=== PATIENT | female | born 1960 | race Asian ===

== ENCOUNTER → 2018-12-30 07:34 | Outpatient (CLI) | payer OTHER, SELFPAY ==
[2018-12-30 08:41] LABS: Add Manual Diff / Slide Review NO; Basophils Absolute Auto 100 /uL (0-100); Basophils Percent Auto 1.1 % (0-2); Eosinophils Absolute Auto 200 /uL (0-450); Eosinophils Percent Auto 3.9 % (2-4); Hematocrit 40.7 % (36-46); Hemoglobin 13.7 g/dL (12.0-16.0); Lymphocytes Absolute Auto 2300 /uL (1100-4500); Lymphocytes Percent Auto 37.7 % (25-40); Mean Corpuscular HGB Conc 33.7 % (30-36); Mean Corpuscular Hemoglobin 28.7 PG (26-34); Mean Corpuscular Volume 85.2 fL (80-100); Monocytes Absolute Auto 600 /uL (0-900); Monocytes Percent Auto 9.8 % (3-14); Neutrophils Absolute Auto 2900 /uL (1500-7000); Neutrophils Percent Auto 47.5 % (50-75); Platelet Count 331 X10^3/uL (150-400); Red Blood Cell Count 4.77 X10^6/uL (4.0-5.2); Red Cell Distribution Width 12.4 % (11.6-14.8); White Blood Cell Count 6.1 X10^3/uL (4.5-11.0)
[2018-12-30 09:20] LABS: Alanine Aminotransferase 42 IU/L (9-52); Albumin 4.7 g/dL (3.5-5.0); Albumin Globulin Ratio 1.4 (1.0-2.8); Alkaline Phosphatase 79 U/L (38-126); Aspartate Aminotransferase 34 IU/L (14-36); BUN Creatinine Ratio 28.3 (6-22); Bilirubin Total 0.7 mg/dL (0.2-1.3); Blood Urea Nitrogen 17 mg/dL (7-17); Calcium 9.7 mg/dL (8.4-10.2); Carbon Dioxide 26 mmol/L (22-32); Chloride 104 mmol/L (98-107); Cholesterol 181 mg/dL (140-199); Estimated Glomerular Filt Rate > 60.0 mL/min (>60); Globulin 3.4 g/dL (1.7-4.1); Glucose 105 mg/dL (70-100); HDL Cholesterol 49 mg/dL (40-60); HEMOLYSIS < 15 (0-50); LDL Cholesterol Calculated 102 mg/dL (<100); Sodium 141 mmol/L (137-145); Total Protein 8.1 g/dL (6.3-8.2); Triglycerides 149 mg/dL (35-150)
== END ==
PROVIDERS: Family Provider Physician Assistant; PCP Physician Assistant; Visit Provider Physician Assistant
DX: Z00.00 Encounter for general adult medical examination without abnormal findings (principal); Z13.1 Encounter for screening for diabetes mellitus; Z13.220 Encounter for screening for lipoid disorders; Z13.29 Encounter for screening for other suspected endocrine disorder; Z13.6 Encounter for screening for cardiovascular disorders
CPT/HCPCS: 36415; 80053; 80061; 84443; 85025

== ENCOUNTER 2019-02-27 01:11 | Emergency (ER) | payer OTHER, SELFPAY ==
[2019-02-27] VITALS (10 sets, daily range): BP systolic 116–193; BP diastolic 67–90; PULSE 71–108; RESP 12–14; TEMP 36.6; O2SAT 98–100; BMI 27.0
--- NOTE | 2019-02-27 01:18 | DI.RAD.S_ITS ---
PROCEDURE: XR CHEST 1V INDICATIONS: chest pain TECHNIQUE: One view of the chest was acquired. COMPARISON: None. FINDINGS: Surgical changes and devices: None. Lungs and pleura: Lungs are clear. No pleural effusions or pneumothorax. Mediastinum: Mediastinal contours appear normal. Heart size is normal. Bones and chest wall: No suspicious bony lesions. Overlying soft tissues appear unremarkable. IMPRESSION: Stable chest. No acute cardiopulmonary process is suspected. Note: The preliminary ED findings and the final radiology report are concordant. Dictated by: Johnny Segovia M.D. on 02/27/2019 at 7:05 Approved by: Johnny Segovia M.D. on 02/27/2019 at 7:05
--- NOTE | 2019-02-27 01:19 | ED_ITS ---
HPI - Chest Pain General Chief Complaint: Chest Pain Stated Complaint: chest pain on/off since yesterday Time Seen by Provider: 02/27/19 01:16 Source: patient Mode of arrival: ambulatory Limitations: no limitations History of Present Illness HPI narrative: 58-year-old female here for evaluation of occasional retrosternal and left-sided chest pain over the past several weeks. She does not associate it with any particular activity. States it does not get worse with movement or palpation of breathing. She states that for the past 24-36 hours the symptoms have become more intense. She took some antacids because she thought it was heartburn which did not seem to improve any of her symptoms. She came in this evening because she felt like the symptoms for worsening. Related Data Home Medications Medication Instructions Recorded Confirmed [[facility] ] #0 01/24/17 11/23/18 calcium carbonate 500 mg calcium See Rx Instructions PO .COMPLEX 11/23/18 11/23/18 (1,250 mg) tablet tab tvvmiiwybcwi-bksxkyfl-kvnxosh-folic tab PO tab 11/23/18 11/23/18 acid 400 mcg-vit K1 20 mcg tablet Allergies Allergy/AdvReac Type Severity Reaction Status Date / Time No Known Drug Allergies Allergy Verified 02/27/19 01:21 Review of Systems Constitutional Denies fever(s) and Denies headache(s) ENT Ears, Nose, Mouth, and Throat: Denies headache(s) Cardiovascular Reports chest pain, Denies edema, Denies palpitations and Denies dyspnea Respiratory Denies dyspnea Gastrointestinal Gastrointestinal: Denies abdominal pain, Denies nausea and Denies vomiting Genitourinary Denies dysuria Musculoskeletal Denies myalgias and Denies arthralgias Integumentary/Breasts Denies rash Neurologic Denies behavioral changes and Denies headache(s) Psychiatric Denies behavioral changes Endocrine Denies palpitations Hematologic/Lymphatic Denies easy bleeding and Denies easy bruising [facility] History Status post delivery Family History (Updated 12/25/15 @ 00:00 by Jina Mcintyre PA-C) Brother DM w/o complication type II Brother Other and unspecified hyperlipidemia Alcohol abuse Brother Alcoholism /alcohol abuse Smoker Mother Essential hypertension Heart disease Sister Cervical cancer Sister History of breast cancer Social History Smoking Status: Never smoker second hand exposure: No alcohol intake: current (wine, once a year.) substance use type: does not use Family History Brother DM w/o complication type II Brother Other and unspecified hyperlipidemia Alcohol abuse Brother Alcoholism /alcohol abuse Smoker Mother Essential hypertension Heart disease Sister Cervical cancer Sister History of breast cancer Social History Smoking Status: Never smoker second hand exposure: No alcohol intake: current (wine, once a year.) substance use type: does not use Exam Initial Vital Signs Initial Vital Signs: Vital Signs Temperature 97.9 F 02/27/19 01:22 Pulse Rate 105 H 02/27/19 01:22 Respiratory Rate 12 02/27/19 01:22 Blood Pressure 193/79 H 02/27/19 01:22 Pulse Oximetry 100 02/27/19 01:22 Const General: cooperative, comfortable, well developed, well groomed and No acute distress Orientation: alert, awake and oriented x3 HENMT Head: normal to inspection and normocephalic Chest Chest: normal inspection of the chest, No crepitus and No tenderness Resp Effort & Inspection: normal respiratory effort Auscultation: clear to auscultation bilaterally Cardio Rate: regular rate Rhythm: regular rhythm Pulses: radial pulses present GI Inspection: non-distended Palpation: soft, No firm and No tender Skin Lesions: no lesions Rashes: no rashes Neuro General: alert, awake and oriented x3 Cognition: normal cognition Speech: speech normal Extrem General: normal to inspection and capillary refill normal Psych Appearance: grossly normal and well kempt Scores GCS [place] coma scale eye opening: Spontaneous [place] coma scale verbal response: Orientated [place] coma scale motor response: Obey commands [place] coma scale total score: 15 HEART Score Heart Score history: Slightly Suspicious Heart Score EKG: Normal Heart Score Age: 45-64 years old Heart Score risk factors: No known risk factors Heart Score troponin: < or = to normal limit Heart Score Total: 1 PERC Score Age greater than or equal to 50 years: Yes Heart rate greater than or equal to 100 bpm: Yes Room Air O2 Sat less than 95%: No Unilateral leg swelling: No Recent trauma or surgery: No Hemoptysis: No Prior PE or DVT: No Hormone Use: No Total PERC Score: 2 Course Orders Ordered: ED Orders 02/27/19 01:18 XR chest 1V Stat EKG-12 Lead Stat 02/27/19 01:20 Complete Blood Count AUTO DIFF Stat Comprehensive Metabolic Panel Stat D Dimer Stat Lipase Stat Partial Thromboplastin Time Stat Prothrombin Time INR Stat Troponin I Stat 02/27/19 03:25 Troponin I Stat Discontinued Medications Acetaminophen (Tylenol) 650 mg PO NOW ONE Stop: 02/27/19 02:02 Last Admin: 02/27/19 02:03 Dose: 650 mg Aspirin (Aspirin Chew) 162 mg PO NOW ONE Stop: 02/27/19 01:22 Last Admin: 02/27/19 01:46 Dose: 162 mg Nitroglycerin (Nitrostat) 0.4 mg SL [id number] PRN PRN Reason: Chest Pain Last Admin: 02/27/19 01:59 Dose: 0.4 mg Admin: 02/27/19 01:53 Dose: 0.4 mg Admin: 02/27/19 01:46 Dose: 0.4 mg Vital Signs - 8 hr 02/27/19 01:22 02/27/19 01:46 02/27/19 01:52 Temperature 97.9 F Pulse Rate 105 H 80 107 H Respiratory Rate 12 Blood Pressure 193/79 H 177/81 H 151/81 H Blood Pressure [Left Arm] Pulse Oximetry 100 02/27/19 01:53 02/27/19 01:57 02/27/19 01:59 Temperature Pulse Rate 108 H 99 H 94 H Respiratory Rate Blood Pressure 151/81 H 174/90 H 174/90 H Blood Pressure [Left Arm] Pulse Oximetry 02/27/19 02:04 02/27/19 02:13 02/27/19 03:14 Temperature Pulse Rate 88 80 71 Respiratory Rate 14 14 Blood Pressure 132/71 Blood Pressure [Left Arm] 130/69 116/72 Pulse Oximetry 99 98 MDM - Chest Pain Lab Data Attestation: I reviewed the patient's lab results. Result diagrams: 02/27/19 01:20 02/27/19 01:20 Lab Results 02/27/19 02/27/19 02/27/19 Range/Units 01:20 01:20 01:20 WBC 8.5 (4.5-11.0) X10^3/uL RBC 4.83 (4.0-5.2) X10^6/uL Hgb 14.0 (12.0-16.0) g/dL Hct 41.3 (36-46) % MCV 85.4 (80-100) fL MCH 28.9 (26-34) PG MCHC 33.8 (30-36) % RDW 13.0 (11.6-14.8) % Plt Count 327 (150-400) X10^3/uL Neut % (Auto) 38.7 L (50-75) % Lymph % (Auto) 45.4 H (25-40) % Haines % (Auto) 11.0 (3-14) % Eos % (Auto) 3.9 (2-4) % Baso % (Auto) 1.0 (0-2) % Neut # (Auto) 3300 (6852-2668) /uL Lymph # (Auto) 3900 (5618-3623) /uL [place] # (Auto) 900 (0-900) /uL Eos # (Auto) 300 (0-450) /uL Baso # (Auto) 100 (0-100) /uL PT 10.4 (10.1-12.7) SECONDS INR 0.9 (0.9-1.3) APTT 40 H (26.4-36.2) SECONDS D-Dimer (<230) ng/mL Sodium 141 (137-145) mmol/L Potassium 3.7 (3.4-5.1) mmol/L Chloride 104 (98-107) mmol/L Carbon Dioxide 27 (22-32) mmol/L BUN 23 H (7-17) mg/dL Creatinine 0.60 (0.52-1.04) mg/dL Estimated GFR > 60.0 (>60) mL/min BUN/Creatinine Ratio 38.3 H (6-22) Glucose 102 H (70-100) mg/dL Calcium 9.4 (8.4-10.2) mg/dL Total Bilirubin 0.5 (0.2-1.3) mg/dL AST 58 H (14-36) IU/L ALT 58 H (9-52) IU/L Alkaline Phosphatase 93 (38-126) U/L Troponin I < 0.012 (0.01-0.034) ng/mL Total Protein 8.2 (6.3-8.2) g/dL Albumin 4.7 (3.5-5.0) g/dL Globulin 3.5 (1.7-4.1) g/dL Albumin/Globulin Ratio 1.3 (1.0-2.8) Lipase 159 (23-300) U/L 02/27/19 02/27/19 Range/Units 01:20 03:25 WBC (4.5-11.0) X10^3/uL RBC (4.0-5.2) X10^6/uL Hgb (12.0-16.0) g/dL Hct (36-46) % MCV (80-100) fL MCH (26-34) PG MCHC (30-36) % RDW (11.6-14.8) % Plt Count (150-400) X10^3/uL Neut % (Auto) (50-75) % Lymph % (Auto) (25-40) % Haines % (Auto) (3-14) % Eos % (Auto) (2-4) % Baso % (Auto) (0-2) % Neut # (Auto) (5094-7378) /uL Lymph # (Auto) (6325-3410) /uL Haines # (Auto) (0-900) /uL Eos # (Auto) (0-450) /uL Baso # (Auto) (0-100) /uL PT (10.1-12.7) SECONDS INR (0.9-1.3) APTT (26.4-36.2) SECONDS D-Dimer 206 (<230) ng/mL Sodium (137-145) mmol/L Potassium (3.4-5.1) mmol/L Chloride (98-107) mmol/L Carbon Dioxide (22-32) mmol/L BUN (7-17) mg/dL Creatinine (0.52-1.04) mg/dL Estimated GFR (>60) mL/min BUN/Creatinine Ratio (6-22) Glucose (70-100) mg/dL Calcium (8.4-10.2) mg/dL Total Bilirubin (0.2-1.3) mg/dL AST (14-36) IU/L ALT (9-52) IU/L Alkaline Phosphatase (38-126) U/L Troponin I < 0.012 (0.01-0.034) ng/mL Total Protein (6.3-8.2) g/dL Albumin (3.5-5.0) g/dL Globulin (1.7-4.1) g/dL Albumin/Globulin Ratio (1.0-2.8) Lipase (23-300) U/L Imaging Data Chest x-ray: Attestation: I personally reviewed and interpreted this imaging study as follows: My impression: No acute pathology, normal size heart ECG Data Attestation: I personally reviewed and interpreted this ECG as follows: Prior ECG tracings: not available for review Interpretation: Sinus rhythm Ventricular rate 89 Normal axis Normal QRS Normal QTC No ST T wave changes MDM Narrative Medical decision making narrative: Patient without any resolution of symptoms with the nitro here in the ER. EKG is unremarkable. Troponins negative x2. D- dimer was negative. Chest x-ray is unremarkable. Patient is low risk according to heart score. For the patient that she needed to contact her primary doctor discuss indications for stress testing. Patient expressed understanding and agreement with plan. Discharge Plan Departure Patient Disposition: Home Clinical Impression: Atypical chest pain Instructions: DI for Atypical Chest Pain Activity Restrictions/Additional Instructions: On Friday you need to contact your primary care doctor to discuss the indications for stress test. Return to the emergency department for any new or worsening symptoms. Continue all other medications as directed Prescriptions: No Action One-A-Day Women's 50 Plus 400-20 mcg tablet PO RF: 0 calcium carbonate [Calcium 500] 500 mg calcium (1,250 mg) tablet See Patient Comments PO .COMPLEX RF: 0 [allertec ] Qty: 0 RF: 0 Referrals: Jina Mcintyre PA-C [Primary Care Provider] -
[2019-02-27 01:29] LABS: Add Manual Diff / Slide Review NO; Basophils Absolute Auto 100 /uL (0-100); Eosinophils Absolute Auto 300 /uL (0-450); Eosinophils Percent Auto 3.9 % (2-4); Hematocrit 41.3 % (36-46); Lymphocytes Absolute Auto 3900 /uL (1100-4500); Lymphocytes Percent Auto 45.4 % (25-40); Mean Corpuscular HGB Conc 33.8 % (30-36); Mean Corpuscular Hemoglobin 28.9 PG (26-34); Mean Corpuscular Volume 85.4 fL (80-100); Monocytes Absolute Auto 900 /uL (0-900); Neutrophils Absolute Auto 3300 /uL (1500-7000); Neutrophils Percent Auto 38.7 % (50-75); Platelet Count 327 X10^3/uL (150-400); Red Blood Cell Count 4.83 X10^6/uL (4.0-5.2); White Blood Cell Count 8.5 X10^3/uL (4.5-11.0)
[2019-02-27 01:34] LABS: INR 0.9 (0.9-1.3); Prothrombin Time 10.4 SECONDS (10.1-12.7)
[2019-02-27 01:36] LABS: PTT Partial Thromboplastin Tim 40 SECONDS (26.4-36.2)
[2019-02-27 01:38] LABS: Alanine Aminotransferase 58 IU/L (9-52); Albumin 4.7 g/dL (3.5-5.0); Albumin Globulin Ratio 1.3 (1.0-2.8); Alkaline Phosphatase 93 U/L (38-126); Aspartate Aminotransferase 58 IU/L (14-36); BUN Creatinine Ratio 38.3 (6-22); Bilirubin Total 0.5 mg/dL (0.2-1.3); Blood Urea Nitrogen 23 mg/dL (7-17); Calcium 9.4 mg/dL (8.4-10.2); Carbon Dioxide 27 mmol/L (22-32); Chloride 104 mmol/L (98-107); Estimated Glomerular Filt Rate > 60.0 mL/min (>60); Globulin 3.5 g/dL (1.7-4.1); Glucose 102 mg/dL (70-100); HEMOLYSIS < 15 (0-50); Lipase 159 U/L (23-300); Potassium 3.7 mmol/L (3.4-5.1); Sodium 141 mmol/L (137-145); Total Protein 8.2 g/dL (6.3-8.2)
[2019-02-27] MEDS: NITROGLYCERIN 0.4 MG SL TAB SL ×3 (01:46→01:59)
[2019-02-27] MEDS: ASPIRIN 81 MG TAB 162 MG PO (01:46)
[2019-02-27 01:49] LABS: Troponin I < 0.012 ng/mL (0.01-0.034)
[2019-02-27] MEDS: ACETAMINOPHEN 325 MG TABLET 650 MG PO (02:03)
[2019-02-27 02:10] LABS: D Dimer 206 ng/mL (<230)
--- NOTE | 2019-02-27 03:28 | PC.NURSE ---
drawn by lab
[2019-02-27 03:55] LABS: Troponin I < 0.012 ng/mL (0.01-0.034)
== END 2019-02-27 04:56 | disposition home or self-care (01) ==
PROVIDERS: Emergency Provider Emergency Medicine; PCP Physician Assistant
DX: R07.89 Other chest pain (principal)
CPT/HCPCS: 36415; 36591; 71045; 80053; 83690; 84484; 85025; 85379; 85610; 85730; 93005; 99282; 99285

== ENCOUNTER → 2019-11-06 09:52 | Outpatient (CLI) | payer OTHER, SELFPAY ==
--- NOTE | 2019-11-06 | DI.MG.S_ITS ---
BILATERAL DIGITAL SCREENING MAMMOGRAM 3D/2D WITH CAD: 11/06/2019 CLINICAL: Routine screening. Family history of breast cancer. Comparison is made to exams dated: 08/13/2017 mammogram, 01/03/2016 mammogram, and 12/15/2014 mammogram - [facility]. The tissue of both breasts is heterogeneously dense. This may lower the sensitivity of mammography. Current study was also evaluated with a Computer Aided Detection (CAD) system. No significant masses, calcifications, or other findings are seen in either breast. There has been no significant interval change. IMPRESSION: NEGATIVE There is no mammographic evidence of malignancy. A 1 year screening mammogram is recommended. This exam was interpreted at Station ID: [id number]. NOTE: For mammograms, a report in lay terms will be sent to the patient. Approximately 15% of breast malignancies will not be visualized mammographically. In the management of a palpable breast mass, a negative mammogram must not discourage biopsy of a clinically suspicious lesion. Electronically Signed By: Cy fuentes/bridgette:11/08/2019 08:47:06 letter sent: Normal Exam ACR BI-RADS Category 1: Negative [id number]
== END ==
PROVIDERS: PCP Physician Assistant; Referring Provider Physician Assistant; Visit Provider Physician Assistant
DX: Z12.31 Encounter for screening mammogram for malignant neoplasm of breast (principal); Z80.3 Family history of malignant neoplasm of breast
CPT/HCPCS: 77063; 77067

== ENCOUNTER 2020-08-31 17:09 | Emergency (ER) | payer OTHER, SELFPAY ==
--- NOTE | 2020-08-31 17:17 | DI.RAD.S_ITS ---
PROCEDURE: XR CHEST 1V INDICATIONS: chest pain TECHNIQUE: One view of the chest was acquired. COMPARISON: [facility], , XR CHEST 1V, 02/27/2019, 1:21. [facility], , CHEST 2 VIEW, 05/14/2011, 9:19. FINDINGS: Surgical changes and devices: None. Lungs and pleura: Lungs are clear. No pleural effusions or pneumothorax. Mediastinum: Mediastinal contours appear normal. Heart size is normal. Bones and chest wall: No suspicious bony lesions. Overlying soft tissues appear unremarkable. IMPRESSION: Normal for age, source of current chest pain symptoms is not seen. Dictated by: Maxime Black M.D. on 08/31/2020 at 18:19 Approved by: Maxime Black M.D. on 08/31/2020 at 18:20
[2020-08-31 17:25] VITALS: BP 204/95; PULSE 93; RESP 17; TEMP 36.8; O2SAT 100; BMI 26.1
[2020-08-31] MEDS: ASPIRIN 81 MG CHEW TAB 324 MG PO (17:59)
[2020-08-31 18:14] LABS: Add Manual Diff / Slide Review NO; Basophils Absolute Auto 100 /uL (0-100); Basophils Percent Auto 0.8 % (0-2); Eosinophils Absolute Auto 200 /uL (0-450); Eosinophils Percent Auto 3.2 % (2-4); Hematocrit 41.6 % (36-46); Hemoglobin 13.8 g/dL (12.0-16.0); Lymphocytes Absolute Auto 2600 /uL (1100-4500); Lymphocytes Percent Auto 38.6 % (25-40); Mean Corpuscular Hemoglobin 28.4 PG (26-34); Monocytes Absolute Auto 800 /uL (0-900); Monocytes Percent Auto 12.5 % (3-14); Neutrophils Absolute Auto 3000 /uL (1500-7000); Neutrophils Percent Auto 44.9 % (50-75); Platelet Count 319 X10^3/uL (150-400); Red Blood Cell Count 4.84 X10^6/uL (4.0-5.2); Red Cell Distribution Width 13.2 % (11.6-14.8); White Blood Cell Count 6.7 X10^3/uL (4.5-11.0)
--- NOTE | 2020-08-31 18:21 | ED.CHESTPAIN ---
HPI - Chest Pain General Chief Complaint: Chest Pain Stated Complaint: blood pressure/neck is sore chest pains Time Seen by Provider: 08/31/20 17:59 Source: patient Mode of arrival: Ambulatory Limitations: no limitations History of Present Illness HPI narrative: Patient is a 59-year-old female. Here for evaluation secondary to elevated blood pressure. She states that for the past several days she has had off and on issues with chest discomfort. She describes as a burning sensation in the middle of her chest. She thinks it is worse when she is lying down. She admits that she has had symptoms similar to this in the past that have gotten better with an acid medication. She has not tried antacids this time. She is not currently having chest pain and has not had chest pain today. She started having left-sided posterior neck pain that is worse when she touches it. She went to a local pharmacy and had her blood pressure checked in stated that the bottom number was greater than 90. She then went to her primary doctor and her blood pressure checked again and she reports that again they bottom number was greater than 90. She came to the emergency department for evaluation. During his blood pressure checked she thought that the systolic blood pressure was around 160. She does have a blood pressure monitor at home. She does not regularly take her blood pressure. She is not on any blood pressure medication. Related Data Home Medications Medication Instructions Recorded Confirmed [facility] #0 01/24/17 11/06/19 calcium carbonate 500 mg calcium See Rx Instructions PO .COMPLEX 11/23/18 11/06/19 (1,250 mg) tablet tab yakauhpczgoz-dbjauoct-xmtovtv-folic tab PO tab 11/23/18 11/06/19 acid 400 mcg-vit K1 20 mcg tablet Previous Rx's Medication Instructions Recorded atovaquone 250 mg-proguanil 100 mg See Rx Instructions PO .COMPLEX 09/03/19 tablet #30 tab cholera vaccine, live 100 ml PO ONCE #100 ml 09/03/19 poliovirus vaccine 40 unit-8 0.5 ml IM ONCE #5 ml 09/03/19 unit-32 unit/0.5 mL injection suspension Allergies Allergy/AdvReac Type Severity Reaction Status Date / Time No Known Drug Allergies Allergy Verified 08/31/20 17:28 Review of Systems Constitutional Constitutional: Denies fatigue and Denies headache(s) ENT Ears, Nose, Mouth, and Throat: Denies headache(s) and Reports neck pain Cardiovascular Cardiovascular: Reports chest pain, Denies rapid heart rate and Denies dyspnea Respiratory Respiratory: Denies cough and Denies dyspnea Gastrointestinal Gastrointestinal: Denies abdominal pain, Denies nausea and Denies vomiting Genitourinary Genitourinary: Denies dysuria Genitourinary: Denies dysuria Musculoskeletal Musculoskeletal: Denies back pain and Reports neck pain Integumentary/Breasts Skin/Breast: Denies lesions and Denies rash Neurologic Neurologic: Denies behavioral changes and Denies headache(s) Psychiatric Psychiatric: Denies behavioral changes Endocrine Endocrine: Denies fatigue Hematologic/Lymphatic Hematologic/Lymphatic: Denies easy bleeding and Denies easy bruising Allergic/Immunologic Allergic/Immunologic: Denies urticaria Patient History Medical History Elevated liver enzymes (12/25/15) Periorbital dermatitis Tubular adenoma of colon (04/14/12) Surgical History Status post delivery Family History Brother DM w/o complication type II Brother Other and unspecified hyperlipidemia Alcohol abuse Brother Alcoholism /alcohol abuse Smoker Mother Essential hypertension Heart disease Sister Cervical cancer Sister History of breast cancer Social History Smoking Status: Never smoker second hand exposure: No alcohol intake: current substance use type: does not use Smoking Status: Never smoker alcohol intake frequency: holidays/special occasions only Substance Use Type: does not use Exam Initial Vital Signs Initial Vital Signs: Vital Signs Temperature 98.2 F 08/31/20 17:25 Pulse Rate 93 H 08/31/20 17:25 Respiratory Rate 17 08/31/20 17:25 Blood Pressure 204/95 H 08/31/20 17:25 Pulse Oximetry 100 08/31/20 17:25 Const General: cooperative, healthy appearing, comfortable and well developed Limitations: mental status not altered HENMT Head: normal to inspection and normocephalic Ears: hearing grossly normal bilaterally Chest Chest: No crepitus and No tenderness Resp Effort & Inspection: normal respiratory effort Auscultation: clear to auscultation bilaterally Cardio Rate: regular rate Rhythm: regular rhythm GI Inspection: non-distended Palpation: soft Back/Spine/Pelvis Cervical Spine: cervical muscular tenderness (Left-sided), No pain with cervical ROM and No cervical spinal tenderness Skin Lesions: no lesions Rashes: no rashes Neuro General: patient alert, patient awake and patient oriented x3 Cognition: normal cognition Speech: speech normal Gait: normal gait Extrem General: normal to inspection, capillary refill normal and No edema Psych Appearance: grossly normal and well kempt Scores GCS [place] coma scale eye opening: Spontaneous [place] coma scale verbal response: Orientated [place] coma scale motor response: Obey commands [place] coma scale total score: 15 HEART Score Heart Score history: Slightly Suspicious Heart Score EKG: Normal Heart Score Age: 45-64 years old Heart Score risk factors: No known risk factors Heart Score troponin: < or = to normal limit Heart Score Total: 1 Course Orders Ordered: ED Orders 08/31/20 17:17 XR chest 1V Stat EKG-12 Lead Stat 08/31/20 17:40 Complete Blood Count AUTO DIFF Stat Comprehensive Metabolic Panel Stat Lipase Stat Partial Thromboplastin Time Stat Prothrombin Time INR Stat Troponin & CK Cardiac Panel Stat Discontinued Medications Aspirin (Aspirin 81 Mg Chew Tab) 324 mg PO NOW ONE Stop: 08/31/20 17:18 Last Admin: 08/31/20 17:59 Dose: 324 mg Documented by: JAZMINE Vital Signs Vital signs: Vital Signs - 8 hr 08/31/20 17:25 08/31/20 18:28 08/31/20 18:30 Temperature 98.2 F Pulse Rate 93 H 68 68 Respiratory Rate 17 21 17 Blood Pressure 204/95 H 167/77 H Pulse Oximetry 100 98 98 08/31/20 19:00 08/31/20 19:04 Temperature Pulse Rate 71 75 Respiratory Rate 17 20 Blood Pressure 167/77 H Pulse Oximetry 97 99 MDM - Chest Pain Lab Data Attestation: I reviewed the patient's lab results. Result diagrams: 08/31/20 17:40 08/31/20 17:40 Labs: Lab Results 08/31/20 08/31/20 08/31/20 Range/Units 17:40 17:40 17:40 WBC 6.7 (4.5-11.0) X10^3/uL RBC 4.84 (4.0-5.2) X10^6/uL Hgb 13.8 (12.0-16.0) g/dL Hct 41.6 (36-46) % MCV 86.0 (80-100) fL MCH 28.4 (26-34) PG MCHC 33.0 (30-36) % RDW 13.2 (11.6-14.8) % Plt Count 319 (150-400) X10^3/uL Neut % (Auto) 44.9 L (50-75) % Lymph % (Auto) 38.6 (25-40) % [place] % (Auto) 12.5 (3-14) % Eos % (Auto) 3.2 (2-4) % Baso % (Auto) 0.8 (0-2) % Neut # (Auto) 3000 (9661-6779) /uL Lymph # (Auto) 2600 (9441-5752) /uL [place] # (Auto) 800 (0-900) /uL Eos # (Auto) 200 (0-450) /uL Baso # (Auto) 100 (0-100) /uL PT 11.2 (10.1-12.7) SECONDS INR 1.0 (0.9-1.3) APTT 39 H (26.4-36.2) SECONDS Sodium 140 (137-145) mmol/L Potassium 3.7 (3.4-5.1) mmol/L Chloride 105 (98-107) mmol/L Carbon Dioxide 28 (22-32) mmol/L BUN 20 H (7-17) mg/dL Creatinine 0.56 (0.52-1.04) mg/dL Estimated GFR > 60.0 (>60) mL/min BUN/Creatinine Ratio 35.7 H (6-22) Glucose 106 H (70-100) mg/dL Calcium 9.7 (8.4-10.2) mg/dL Total Bilirubin 0.5 (0.2-1.3) mg/dL AST 38 H (14-36) IU/L ALT 38 H (<35) IU/L Alkaline Phosphatase 86 (38-126) U/L Total Creatine Kinase 94 (30-135) U/L CK-MB (CK-2) TNP CK-MB (CK-2) Rel Index TNP Troponin I < 0.012 (0.01-0.034) ng/mL Total Protein 8.9 H (6.3-8.2) g/dL Albumin 4.8 (3.5-5.0) g/dL Globulin 4.1 (1.7-4.1) g/dL Albumin/Globulin Ratio 1.2 (1.0-2.8) Lipase 99 (23-300) U/L Imaging Data Chest x-ray: Radiologist's Impression: [address] [id number] ReportSigned Patient: Katharine Infante MMR#: [id number]: 2Acct:[id number]/Sex: 59 / FDate of Service: 08/31/20Loc: EDAccession Number: [id number] Procedure: XR chest 1V Ordering Provider: Roberto Flynn MD PROCEDURE: XR CHEST 1V INDICATIONS: chest pain TECHNIQUE: One view of the chest was acquired. COMPARISON: [facility], , XR CHEST 1V, 02/27/2019, 1:21. [facility], , CHEST 2 VIEW, 05/14/2011, 9:19. FINDINGS: Surgical changes and devices: None. Lungs and pleura: Lungs are clear. No pleural effusions or pneumothorax. Mediastinum: Mediastinal contours appear normal. Heart size is normal. Bones and chest wall: No suspicious bony lesions. Overlying soft tissues appear unremarkable. IMPRESSION: Normal for age, source of current chest pain symptoms is not seen. Dictated by: Maxime Black M.D. on 08/31/2020 at 18:19 Approved by: Maxime Black M.D. on 08/31/2020 at 18:20 ECG Data Attestation: I personally reviewed and interpreted this ECG as follows: Prior ECG tracings: not available for review Interpretation: Sinus rhythm Ventricular rate 82 Normal axis LVH Normal QTC Normal QRS No ST T wave changes MDM Narrative Medical decision making narrative: Patient's blood pressure did improve without any intervention here in the ER. She does have a blood pressure cuff at home and I informed her that she needs to start taking her blood pressure at home 1 time a day and record these numbers in talk with her primary doctor about starting on any medication pending with these numbers show. I feel that her left neck pain is musculoskeletal it is easy reproduced with touching over the trapezius muscle. Patient has not had any chest pain today. She has low risk heart score. Troponin is negative. EKG is unremarkable. Her chest pain also sounds very much GI related as it gets worse when she lays down and is a burning sensation in the past has resolved with anti-reflux medications. I feel we can hold on further workup. Informed patient she you contact her primary provider about further workup to include a stress test. Patient and her was at bedside expressed understanding and agreement this plan. Discharge Plan Departure Patient Disposition: Home Clinical Impression: Atypical chest pain Instructions: DI for Atypical Chest Pain Activity Restrictions/Additional Instructions: I do recommend you continue all of your medications. I also recommend that you start taking her blood pressure at home 1 time a day like we discussed. Right these blood pressures down and contact your primary provider for follow-up to discuss the values. Return to the emergency department for any new or worsening symptoms Prescriptions: No Action One-A-Day Women's 50 Plus 400-20 mcg tablet PO RF: 0 calcium carbonate [Calcium 500] 500 mg calcium (1,250 mg) tablet See Rx Instructions PO .COMPLEX RF: 0 [allertec ] Qty: 0 RF: 0 atovaquone-proguanil 250-100 mg tablet See Rx Instructions PO .COMPLEX Qty: 30 RF: 0 IPOL 40-8-32 unit/0.5 mL suspension 0.5 ml IM ONCE Qty: 5 RF: 0 Vaxchora Vaccine [id number] to 2x 10exp9 CF unit suspension for reconstitution 100 ml PO ONCE Qty: 100 RF: 0 Referrals: Krystian Ahmadi ARNP [Primary Care Provider] -
[2020-08-31 18:28] VITALS: BP 167/77; PULSE 68; RESP 21; O2SAT 98
[2020-08-31 18:30] VITALS: PULSE 68; RESP 17; O2SAT 98
[2020-08-31 18:41] LABS: Prothrombin Time 11.2 SECONDS (10.1-12.7)
[2020-08-31 18:44] LABS: PTT Partial Thromboplastin Tim 39 SECONDS (26.4-36.2)
[2020-08-31 18:54] LABS: Alanine Aminotransferase 38 IU/L (<35); Albumin 4.8 g/dL (3.5-5.0); Albumin Globulin Ratio 1.2 (1.0-2.8); Alkaline Phosphatase 86 U/L (38-126); Aspartate Aminotransferase 38 IU/L (14-36); BUN Creatinine Ratio 35.7 (6-22); Bilirubin Total 0.5 mg/dL (0.2-1.3); Blood Urea Nitrogen 20 mg/dL (7-17); Calcium 9.7 mg/dL (8.4-10.2); Carbon Dioxide 28 mmol/L (22-32); Chloride 105 mmol/L (98-107); Creatine Kinase 94 U/L (30-135); Estimated Glomerular Filt Rate > 60.0 mL/min (>60); Globulin 4.1 g/dL (1.7-4.1); Glucose 106 mg/dL (70-100); HEMOLYSIS < 15 (0-50); Lipase 99 U/L (23-300); Potassium 3.7 mmol/L (3.4-5.1); Sodium 140 mmol/L (137-145); Total Protein 8.9 g/dL (6.3-8.2)
[2020-08-31 19:00] VITALS: PULSE 71; RESP 17; O2SAT 97
[2020-08-31 19:04] VITALS: BP 167/77; PULSE 75; RESP 20; O2SAT 99
[2020-08-31 19:06] LABS: Troponin I < 0.012 ng/mL (0.01-0.034)
--- NOTE | 2020-08-31 19:10 | PC.NURSE ---
patient states that she has had mind cervical pain when she bends down reading facebook. She states that she has blurry vision but has had that for a while and its related to her vision that she is seeing her DrJg for. She states that she does not have a headache or lightheadedness. She denies SOB or chest pain
[2020-08-31 19:30] VITALS: BP 167/77; PULSE 64; RESP 20; O2SAT 64
== END 2020-08-31 19:32 | disposition home or self-care (01) ==
PROVIDERS: Emergency Medicine; Emergency Provider Emergency Medicine; PCP Nurse Practitioner Family
DX: R07.89 Other chest pain (principal); I10 Essential (primary) hypertension; M54.2 Cervicalgia
CPT/HCPCS: 36415; 71045; 80053; 82550; 83690; 84484; 85025; 85610; 85730; 93005; 99283; 99284

== ENCOUNTER → 2020-10-03 09:42 | Outpatient (CLI) | payer OTHER, SELFPAY ==
[2020-10-03 10:38] LABS: Cholesterol 206 mg/dL (140-199); HDL Cholesterol 47 mg/dL (40-60); LDL Cholesterol Calculated 139 mg/dL (<100); Triglycerides 100 mg/dL (35-150)
[2020-10-03 12:14] LABS: TSH w/ Reflex to FT4 1.24 uIU/mL (0.47-4.68)
== END ==
PROVIDERS: PCP Nurse Practitioner Family; Referring Provider Nurse Practitioner Family; Visit Provider Nurse Practitioner Family
DX: Z13.6 Encounter for screening for cardiovascular disorders (principal); R53.83 Other fatigue
CPT/HCPCS: 36415; 80061; 84443

== ENCOUNTER → 2020-11-14 08:42 | Outpatient (CLI) | payer OTHER, SELFPAY ==
--- NOTE | 2020-11-14 08:43 | DI.MG.S_ITS ---
BILATERAL DIGITAL DIAGNOSTIC MAMMOGRAM 3D/2D: 11/14/2020 CLINICAL: Mastodynia. Comparison is made to exams dated: 11/06/2019 mammogram, 08/13/2017 mammogram, and 01/03/2016 mammogram - [facility]. The tissue of both breasts is heterogeneously dense. This may lower the sensitivity of mammography. No significant masses, calcifications, or other findings are seen in either breast. IMPRESSION: INCOMPLETE: NEEDS ADDITIONAL IMAGING EVALUATION There is no abnormality seen in the left breast to correspond with the area of clinical concern and pain at 3 o'clock, however, ultrasound is recommended. This exam was interpreted at Station ID: [id number]. NOTE: For mammograms, a report in lay terms will be sent to the patient. Approximately 15% of breast malignancies will not be visualized mammographically. In the management of a palpable breast mass, a negative mammogram must not discourage biopsy of a clinically suspicious lesion. Electronically Signed By: Bunny Orozco acr/:11/14/2020 09:18:22 letter sent: Additional Imaging Needed ACR BI-RADS Category 0: Incomplete 3340F
--- NOTE | 2020-11-14 08:43 | DI.US.S_ITS ---
LIMITED ULTRASOUND OF LEFT BREAST AND AXILLA: 11/14/2020 CLINICAL: Focal left breast pain. Comparison is made to exams dated: 11/14/2020 mammogram, 11/06/2019 mammogram, 08/13/2017 mammogram, and 01/03/2016 mammogram - [facility]. Ultrasound of the left breast 3 o'clock, and axilla regions was performed. IMPRESSION: NEGATIVE There is no sonographic evidence of malignancy. There is no abnormality seen in the left breast to correspond with the area of clinical concern and pain at 3 o'clock. Return to annual mammogram screening schedule is recommended. This exam was interpreted at Station ID: [id number]. Electronically Signed By: Bunny Orozco acr/:11/14/2020 11:04:17 letter sent: Normal Exam Ultrasound BI-RADS: 1 Negative
== END ==
PROVIDERS: PCP Nurse Practitioner Family; Referring Provider Nurse Practitioner Family; Visit Provider Nurse Practitioner Family
DX: R92.2 Inconclusive mammogram (principal); N64.4 Mastodynia
CPT/HCPCS: 76642; 77066; G0279

== ENCOUNTER → 2021-03-20 10:34 | Outpatient (CLI) | payer OTHER, SELFPAY ==
[2021-03-20 11:09] LABS: COVID19 -Nasal RAPID Negative (Negative)
== END ==
PROVIDERS: PCP Nurse Practitioner Family; Visit Provider Physician Assistant
DX: R05 Cough (principal); J02.9 Acute pharyngitis, unspecified; Z20.822 Contact with and (suspected) exposure to COVID-19
CPT/HCPCS: 87070; 87635

== ENCOUNTER → 2021-06-01 09:01 | Outpatient (CLI) | payer OTHER, SELFPAY ==
[2021-06-01 10:00] LABS: Alanine Aminotransferase 42 IU/L (<35); Albumin 4.7 g/dL (3.5-5.0); Albumin Globulin Ratio 1.4 (1.0-2.8); Alkaline Phosphatase 73 U/L (38-126); Aspartate Aminotransferase 38 IU/L (14-36); BUN Creatinine Ratio 35.5 (6-22); Bilirubin Total 0.7 mg/dL (0.2-1.3); Blood Urea Nitrogen 22 mg/dL (7-17); Calcium 10.2 mg/dL (8.4-10.2); Carbon Dioxide 29 mmol/L (22-32); Chloride 104 mmol/L (98-107); Cholesterol 191 mg/dL (140-199); Estimated Glomerular Filt Rate > 60.0 mL/min (>60); Globulin 3.4 g/dL (1.7-4.1); Glucose 115 mg/dL (70-100); HDL Cholesterol 58 mg/dL (40-60); HEMOLYSIS < 15 (0-50); LDL Cholesterol Calculated 109 mg/dL (<100); Potassium 4.6 mmol/L (3.4-5.1); Sodium 140 mmol/L (137-145); Total Protein 8.1 g/dL (6.3-8.2); Triglycerides 118 mg/dL (35-150)
== END ==
PROVIDERS: PCP Nurse Practitioner Family; Referring Provider Nurse Practitioner Family; Visit Provider Nurse Practitioner Family
DX: I10 Essential (primary) hypertension (principal); E78.2 Mixed hyperlipidemia
CPT/HCPCS: 36415; 80053; 80061

== ENCOUNTER 2021-09-24 17:02 | Emergency (ER) | payer OTHER, SELFPAY ==
[2021-09-24 17:31] VITALS: BP 140/67; PULSE 72; RESP 16; TEMP 36.3; O2SAT 97
[2021-09-24 18:25] LABS: COVID19 -Nasal RAPID Negative (Negative)
--- NOTE | 2021-09-24 19:09 | ED_ITS ---
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 She is here for a COVID test. Related Data Home Medications Medication Instructions Recorded Confirmed [allertec ] #0 01/24/17 03/20/21 calcium carbonate 500 mg calcium See Rx Instructions PO .COMPLEX 11/23/18 03/20/21 (1,250 mg) tablet (Calcium 500) tab jtkqmonhdvmp-gxfkvnvd-joisgdj-folic tab PO tab 11/23/18 03/20/21 acid 400 mcg-vit K1 20 mcg tablet (One-A-Day Women's 50 Plus) ascorbate calcium (vitamin C) 500 500 mg PO DAILY 10/03/20 03/20/21 mg tablet Previous Rx's Medication Instructions Recorded olopatadine 0.1 % eye drops 1 drp EYE-BOTH ONCE PRN #5 ml 10/03/20 (Pataday Twice Daily Relief) estradiol 1 g VAGINAL 2XW #42.5 g 10/20/20 fluticasone propionate 50 2 spray INTRANASAL DAILY #9.9 ml 03/20/21 mcg/actuation nasal spray,suspension losartan 50 mg tablet 50 mg PO DAILY #90 tab 07/23/21 Allergies Allergy/AdvReac Type Severity Reaction Status Date / Time lisinopril AdvReac Intermediate cough Verified 10/20/20 16:51 Review of Systems Constitutional Constitutional: Denies fever(s) Cardiovascular Cardiovascular: Reports system reviewed and no additional complaints, except as documented Respiratory Respiratory: Reports cough Gastrointestinal Gastrointestinal: Reports system reviewed and no additional complaints, except as documented Integumentary/Breasts Skin/Breast: Reports system reviewed and no additional complaints, except as documented Hematologic/Lymphatic On Anticoagulants: No Patient History Medical History Allergies (2018) Dyspareunia Elevated liver enzymes (12/25/15) Encounter for routine gynecological examination (10/20/20) Essential hypertension (08/2020) Fatigue Mixed hyperlipidemia (09/2020) Pain of left breast Periorbital dermatitis Tubular adenoma of colon (04/14/12) Surgical History Status post delivery Family History Brother DM w/o complication type II Brother Other and unspecified hyperlipidemia Alcohol abuse Brother Alcoholism /alcohol abuse Smoker Mother Essential hypertension Heart disease Sister Cervical cancer Sister History of breast cancer Social History Smoking Status: Never smoker second hand exposure: No alcohol intake: current substance use type: does not use Smoking Status: Never smoker alcohol intake frequency: holidays/special occasions only Substance Use Type: does not use Exam Initial Vital Signs Initial Vital Signs: Vital Signs Temperature 97.4 F L 09/24/21 17:31 Pulse Rate 72 09/24/21 17:31 Respiratory Rate 16 09/24/21 17:31 Blood Pressure 140/67 09/24/21 17:31 Pulse Oximetry 97 09/24/21 17:31 Const General: cooperative, healthy appearing and comfortable Resp Effort & Inspection: normal respiratory effort Auscultation: clear to auscultation bilaterally Cardio Rate: regular rate Rhythm: regular rhythm Skin General: no rashes or lesions noted Neuro General: patient alert, patient awake and moves all extremities Psych Appearance: grossly normal and well kempt Course Orders Ordered: ED Orders 09/24/21 17:59 COVID19 -Nasal swab/Pre-Proc Stat Vital Signs Vital signs: Vital Signs - 8 hr 09/24/21 17:31 Temperature 97.4 F L Pulse Rate 72 Respiratory Rate 16 Blood Pressure 140/67 Pulse Oximetry 97 [facility] - Recheck/Abnormal Lab/Rx Lab Data Labs: Lab Results 09/24/21 Range/Units 17:59 SARS-CoV-2 (PCR) Negative (Negative) [facility] Narrative Medical decision making narrative: COVID test was negative. She was given a copy of this for her employer. She was given return precautions. She expressed understanding and agreement. Discharge Plan Departure Patient Disposition: Home Clinical Impression: Cough Instructions: Cough Activity Restrictions/Additional Instructions: Your COVID test was negative. Contact your primary doctor for follow-up. Return to the emergency department for any new or worsening symptoms. Prescriptions: No Action One-A-Day Women's 50 Plus 400-20 mcg tablet PO 0RF calcium carbonate [Calcium 500] 500 mg calcium (1,250 mg) tablet See Rx Instructions PO .COMPLEX 0RF Label Comments: 500 mg PO Daily; Rx Instructions: 500 mg PO Daily; fluticasone propionate 50 mcg/actuation spray,suspension 2 spray intranasal DAILY Qty: 9.9 0RF Rx Instructions: administer into each nostril [allertec ] Qty: 0 0RF losartan 50 mg tablet 50 mg PO DAILY Qty: 90 0RF Rx Instructions: Due for lab and appt prior to refills ascorbate calcium (vitamin C) 500 mg tablet 500 mg PO DAILY 0RF olopatadine [Pataday Twice Daily Relief] 0.1 % drops 1 drp EYE-BOTH ONCE PRN (Reason: itching, watery eyes) Qty: 5 1RF Rx Instructions: use one drop each eye daily as needed estradiol 0.01 % (0.1 mg/gram) cream 1 g vaginal 2XW Qty: 42.5 0RF Rx Instructions: Use a pea-sized amount to the external vagina twice a week Referrals: Krystian Ahmadi ARNP [Primary Care Provider] -
== END 2021-09-24 19:29 | disposition home or self-care (01) ==
PROVIDERS: Emergency Medicine; Emergency Provider Emergency Medicine; PCP Nurse Practitioner Family
DX: R05.9 Cough, unspecified (principal); Z20.822 Contact with and (suspected) exposure to COVID-19
CPT/HCPCS: 87635; 99281; C9803

== ENCOUNTER → 2021-10-26 07:39 | Outpatient (CLI) | payer OTHER, SELFPAY ==
[2021-10-26 08:14] LABS: Hematocrit 39.7 % (36-46); Hemoglobin 13.4 g/dL (12.0-16.0); Mean Corpuscular HGB Conc 33.8 % (30-36); Mean Corpuscular Volume 85.9 fL (80-100); Platelet Count 310 X10^3/uL (150-400); Red Blood Cell Count 4.62 X10^6/uL (4.0-5.2); Red Cell Distribution Width 13.1 % (11.6-14.8); White Blood Cell Count 5.5 X10^3/uL (4.5-11.0)
[2021-10-26 08:19] LABS: Hemoglobin A1C% w Est Avg Glu 5.8 % (4.0-6.0)
[2021-10-26 08:34] LABS: Alanine Aminotransferase 38 IU/L (<35); Albumin 4.7 g/dL (3.5-5.0); Albumin Globulin Ratio 1.3 (1.0-2.8); Alkaline Phosphatase 79 U/L (38-126); Aspartate Aminotransferase 36 IU/L (14-36); BUN Creatinine Ratio 26.9 (6-22); Bilirubin Total 0.7 mg/dL (0.2-1.3); Blood Urea Nitrogen 18 mg/dL (7-17); Calcium 9.4 mg/dL (8.4-10.2); Carbon Dioxide 28 mmol/L (22-32); Chloride 107 mmol/L (98-107); Estimated Glomerular Filt Rate > 60.0 mL/min (>60); Globulin 3.7 g/dL (1.7-4.1); Glucose 121 mg/dL (80-110); HEMOLYSIS < 15 (0-50); Potassium 4.1 mmol/L (3.4-5.1); Sodium 141 mmol/L (137-145); Total Protein 8.4 g/dL (6.3-8.2)
[2021-10-26 09:03] LABS: TSH w/ Reflex to FT4 2.33 uIU/mL (0.47-4.68)
[2021-10-27 00:11] LABS: HBsAg Screen Negative (Negative); Hepatitis A Antibody IgM Negative (Negative); Hepatitis B Core Antibody IgM Negative (Negative); Hepatitis C Antibody <0.1 s/co ratio (0.0-0.9)
[2021-10-28 13:40] LABS: ANA Screen, IFA Negative (.)
[2021-10-29 16:20] LABS: Smooth Muscle Antibody 6 Units (0-19)
== END ==
PROVIDERS: PCP Nurse Practitioner Family; Referring Provider Nurse Practitioner Family; Visit Provider Nurse Practitioner Family
DX: Z00.00 Encounter for general adult medical examination without abnormal findings (principal); R74.8 Abnormal levels of other serum enzymes; R73.9 Hyperglycemia, unspecified
CPT/HCPCS: 36415; 80053; 80074; 83036; 83516; 84443; 85027; 86038

== ENCOUNTER → 2021-12-01 10:40 | Outpatient (CLI) | payer OTHER, SELFPAY ==
--- NOTE | 2021-12-01 10:41 | DI.MG.S_ITS ---
BILATERAL DIGITAL SCREENING MAMMOGRAM 3D/2D WITH CAD: 12/01/2021 CLINICAL: Routine screening. Family history of breast cancer. Comparison is made to exams dated: 11/14/2020 mammogram, 08/13/2017 mammogram, 01/03/2016 mammogram, and 12/15/2014 mammogram - [facility]. The tissue of both breasts is heterogeneously dense. This may lower the sensitivity of mammography. Current study was also evaluated with a Computer Aided Detection (CAD) system. No significant masses, calcifications, or other findings are seen in either breast. There has been no significant interval change. IMPRESSION: NEGATIVE There is no mammographic evidence of malignancy. A 1 year screening mammogram is recommended. This exam was interpreted at Station ID: [id number]. NOTE: For mammograms, a report in lay terms will be sent to the patient. Approximately 15% of breast malignancies will not be visualized mammographically. In the management of a palpable breast mass, a negative mammogram must not discourage biopsy of a clinically suspicious lesion. Electronically Signed By: Arnold atkinson/bridgette:12/03/2021 09:41:18 letter sent: Normal Exam ACR BI-RADS Category 1: Negative 3341F
== END ==
PROVIDERS: PCP Nurse Practitioner Family; Referring Provider Nurse Practitioner Family; Visit Provider Nurse Practitioner Family
DX: Z12.31 Encounter for screening mammogram for malignant neoplasm of breast (principal); Z80.3 Family history of malignant neoplasm of breast
CPT/HCPCS: 77063; 77067

== ENCOUNTER → 2022-09-19 09:01 | Outpatient (CLI) | payer OTHER, SELFPAY ==
[2022-09-19 10:00] LABS: COVID-19 CEPHEID 4-PLEX PCR POSITIVE (Negative); Influenza A - CEPHEID Flu A POSITIVE (NEGATIVE); Influenza B - CEPHEID Flu B NEGATIVE (NEGATIVE); Respiratory Syncytial Virus Negative (Negative)
== END ==
PROVIDERS: PCP Nurse Practitioner Family; Visit Provider Physician Assistant Medical
DX: U07.1 COVID-19 (principal); J06.9 Acute upper respiratory infection, unspecified; Z20.822 Contact with and (suspected) exposure to COVID-19
CPT/HCPCS: 0241U

== ENCOUNTER → 2023-02-07 09:05 | Outpatient (CLI) | payer OTHER, SELFPAY ==
[2023-02-07 10:10] LABS: Add Manual Diff / Slide Review NO; Basophils Absolute Auto 100 /uL (0-100); Eosinophils Absolute Auto 200 /uL (0-450); Hematocrit 38.9 % (36-46); Hemoglobin 13.2 g/dL (12.0-16.0); Lymphocytes Absolute Auto 2300 /uL (1100-4500); Lymphocytes Percent Auto 45.1 % (25-40); Mean Corpuscular Hemoglobin 28.9 PG (26-34); Mean Corpuscular Volume 84.9 fL (80-100); Monocytes Absolute Auto 500 /uL (0-900); Monocytes Percent Auto 9.2 % (3-14); Neutrophils Absolute Auto 2100 /uL (1500-7000); Neutrophils Percent Auto 40.7 % (50-75); Platelet Count 339 X10^3/uL (150-400); Red Blood Cell Count 4.58 X10^6/uL (4.0-5.2); Red Cell Distribution Width 12.7 % (11.6-14.8); White Blood Cell Count 5.2 X10^3/uL (4.5-11.0)
[2023-02-07 10:58] LABS: Alanine Aminotransferase 22 IU/L (<35); Albumin 4.2 g/dL (3.5-5.0); Albumin Globulin Ratio 1.3 (1.0-2.8); Alkaline Phosphatase 75 U/L (38-126); Aspartate Aminotransferase 22 IU/L (14-36); BUN Creatinine Ratio 23.1 (6-22); Bilirubin Total 0.6 mg/dL (0.2-1.3); Blood Urea Nitrogen 15 mg/dL (7-17); Calcium 9.2 mg/dL (8.4-10.2); Carbon Dioxide 27 mmol/L (22-32); Chloride 106 mmol/L (98-107); Cholesterol 165 mg/dL (140-199); Estimated Glomerular Filt Rate > 60 mL/min (>60); Globulin 3.2 g/dL (1.7-4.1); Glucose 107 mg/dL (80-110); HDL Cholesterol 45 mg/dL (40-60); HEMOLYSIS < 15 (0-50); LDL Cholesterol Calculated 103 mg/dL (<100); Potassium 4.6 mmol/L (3.4-5.1); Sodium 142 mmol/L (137-145); Total Protein 7.4 g/dL (6.3-8.2); Triglycerides 84 mg/dL (35-150)
[2023-02-07 11:28] LABS: TSH w/ Reflex to FT4 1.25 uIU/mL (0.47-4.68)
[2023-02-08 09:51] LABS: x Labcorp Estim. Avg Glu (eAG) 128 mg/dL (.); x Labcorp Hemoglobin A1c 6.1 % (4.8-5.6)
== END ==
PROVIDERS: PCP Family Medicine; Referring Provider Family Medicine; Visit Provider Family Medicine
DX: E78.2 Mixed hyperlipidemia (principal); I10 Essential (primary) hypertension; R53.83 Other fatigue; R73.03 Prediabetes
CPT/HCPCS: 36415; 80053; 80061; 83036; 84443; 85025

== ENCOUNTER → 2023-03-06 07:14 | Outpatient (CLI) | payer OTHER, SELFPAY ==
--- NOTE | 2023-03-06 07:15 | DI.MG.S_ITS ---
BILATERAL DIGITAL SCREENING MAMMOGRAM 3D/2D WITH CAD: 03/06/2023 CLINICAL: Routine screening. Family history of breast cancer. Comparison is made to exams dated: 12/01/2021 mammogram, 11/14/2020 mammogram, and 11/06/2019 mammogram - [facility]. Both breasts are heterogeneously dense, which may obscure small masses (category c / 51-75% glandular tissue). Current study was also evaluated with a Computer Aided Detection (CAD) system. No significant masses, calcifications, or other findings are seen in either breast. There has been no significant interval change. IMPRESSION: NEGATIVE There is no mammographic evidence of malignancy. A 1 year screening mammogram is recommended. Please also consider supplemental MRI screening. Based on Tyrer-Cuzick model (a risk assessment model), the patient's lifetime risk is 20.7% and her 10 year risk is 9.0%. If a patient has an elevated risk, a more comprehensive evaluation should be considered and/or a referral to a genetic counselor. The [employer], [employer], and NCCN Guidelines advise the consideration of Breast MRI as an adjunct to screening mammography in patients whose Lifetime risk to develop breast cancer is 20% or higher. This exam was interpreted at Station ID: [id number]. NOTE: For mammograms, a report in lay terms will be sent to the patient. Approximately 15% of breast malignancies will not be visualized mammographically. In the management of a palpable breast mass, a negative mammogram must not discourage biopsy of a clinically suspicious lesion. Electronically Signed By: Saúl Gonzalez M.D. lc/:03/06/2023 08:44:42 letter sent: Normal Exam ACR BI-RADS Category 1: Negative 3341F
== END ==
PROVIDERS: PCP Family Medicine; Referring Provider Family Medicine; Visit Provider Family Medicine
DX: Z12.31 Encounter for screening mammogram for malignant neoplasm of breast (principal); Z80.3 Family history of malignant neoplasm of breast
CPT/HCPCS: 77063; 77067

== ENCOUNTER 2023-07-16 12:16 | Day surgery (SDC) | payer OTHER, SELFPAY ==
[2023-07-16] VITALS (7 sets, daily range): BP systolic 86–130; BP diastolic 51–72; PULSE 59–83; RESP 14–18; TEMP 36.1–36.7; O2SAT 96–99; BMI 25.5
--- NOTE | 2023-07-16 | PATH_ITS ---
[facility] Accession Number: [id number] No. of containers..01 Tissue . 01 Material submitted: . colon - SIGMOID POLYP . 01 Diagnosis: Sigmoid Colon Polyp: Hyperplastic polyp. Additional step sections examined. MRV 07/21/2023 1357 Local . 01 Electronically signed: . Fermín Montoya MD, PhD, Pathologist NPI- [id number] . 01 Gross description: . SIGMOID POLYP: Received in formalin is 1 fragment(s) of hansen, soft tissue measuring 0.3 x 0.2 x 0.1 cm submitted entirely in 1 cassette(s) /AAY 07/17/2023 0404 Local . 01 Pathologist provided ICD-10: K63.5 . 01 CPT . 143518 Specimen Comment: A courtesy copy of this report has been sent to [phone] Performed at: 01 [facility] [address] [place] [address], [place], [place] [id number] MD Keyon Auguste MD Phone: [phone]
[2023-07-16] MEDS: LACTATED RINGERS 1,000 ML 84 ML IV (12:56)
--- NOTE | 2023-07-16 13:32 | P.HP_ITS ---
History of Present Illness History of Present Illness Date Patient Seen: 07/16/23 Time Patient Seen: 13:32 Chief complaint: Screening Colonoscopy Narrative: Katharine is a 62-year-old woman who had a colonoscopy in 2018. She has had polyps removed on her first colonoscopy when she was about 51 but she is not sure about her last 1 in 2018. [facility] Medical History Allergies (2018) Dyspareunia Elevated blood sugar Elevated liver enzymes (12/25/15) Encounter for routine gynecological examination (10/20/20) Essential hypertension (08/2020) Fatigue Mixed hyperlipidemia (09/2020) Pain of left breast Periorbital dermatitis Tubular adenoma of colon (04/14/12) Surgical History Status post delivery Family History Brother DM w/o complication type II Brother Other and unspecified hyperlipidemia Alcohol abuse Brother Alcoholism /alcohol abuse Smoker Mother Essential hypertension Heart disease Sister Cervical cancer Sister History of breast cancer Social History household members: spouse Smoking Status: Never smoker second hand exposure: No alcohol intake: current substance use type: does not use Meds Home Medications and Allergies Home Medications Medication Instructions Recorded Confirmed Type losartan 50 mg tablet 50 mg PO DAILY #90 tabs 02/18/23 07/16/23 Rx ascorbic acid (vitamin C) 500 mg 500 mg PO DAILY 07/16/23 07/16/23 History tablet (Vitamin C) cetirizine 10 mg tablet 10 mg PO DAILY 07/16/23 07/16/23 History mv-mn-iron fum-folic acid-omega 3, 1 cap PO DAILY 07/16/23 07/16/23 History 6, 9 no.3 18 mg-600 mcg capsule Allergies Allergy/AdvReac Type Severity Reaction Status Date / Time lisinopril AdvReac Intermediate cough Verified 07/16/23 12:48 Exam Vital Signs (past 8 hours): - 07/16/23 12:56 Temperature 98.1 F Pulse Rate 83 Respiratory Rate 16 Blood Pressure 125/69 Pulse Oximetry 98 Oxygen Delivery Method Room Air Oxygen Delivery Method Room Air Const General: healthy appearing Resp Effort & Inspection: normal respiratory effort Assessment & Plan Assessment and plan (1) History of colon polyps: Status: Acute Plan We reviewed the risks and benefits of colonoscopy and she would like to proceed.
--- NOTE | 2023-07-16 13:58 | PM.OP.COLON ---
Operative Date/Time/Diagnoses Date of procedure: 07/16/23 Time of procedure: 13:58 Pre-op diagnosis: Colon cancer screening Post-op diagnosis: same Procedure & Clinicians Study performed: Colonoscopy Same procedure as scheduled: Yes Surgeon: Maurilio Tanner Procedure Notes Procedure in detail: Surgeon: Maurilio Tanner MD Anesthesia: Alethea Leonard DO Procedure: The patient was brought to the endoscopy suite, placed in left lateral decubitus position. The patient was connected to monitoring devices. A time-out was performed. Sedation was administered. Once the patient was adequately sedated, a digital rectal exam was performed and was normal. The scope was then inserted and advanced to the cecum where the appendiceal orifice was identified and photographed. The scope was then slowly withdrawn over greater than 6 minutes. The mucosa was thoroughly inspected. There was a 2 mm polyp in the sigmoid colon removed with a Jumbo forceps. The scope was retroflexed in the rectum. No other abnormalities were seen. The scope was straightened and removed. The patient was awakened and brought to recovery. Scope withdrawal time: 7 minutes Sedation time: 13 minutes EBL: 3 mL Findings: 2 mm polyp in the sigmoid colon Post-procedure Disposition: PACU
== END 2023-07-16 14:35 | disposition home or self-care (01) ==
PROVIDERS: PCP Family Medicine; Referring Provider Surgery; Visit Provider Surgery
PROC: 0DJD8ZZ Inspection of Lower Intestinal Tract, Via Natural or Artificial Opening Endoscopic (ICD-10-PCS; CPT 45378; principal; 2023-07-16 13:30)
DX: Z12.11 Encounter for screening for malignant neoplasm of colon (principal); Z86.010 Personal history of colon polyps; K63.5 Polyp of colon
CPT/HCPCS: 45380; J2704

== ENCOUNTER → 2024-01-13 09:49 | Outpatient (CLI) | payer OTHER, SELFPAY | PROVIDERS: PCP Family Medicine; Visit Provider Physician Assistant Surgical | DX: J02.9 Acute pharyngitis, unspecified (principal) | CPT/HCPCS: 87070 ==

== ENCOUNTER → 2024-01-28 08:09 | Outpatient (CLI) | payer OTHER, SELFPAY ==
[2024-01-28 08:50] LABS: Hemoglobin A1C% w Est Avg Glu 6.3 % (4.0-6.0)
[2024-01-28 09:00] LABS: Alanine Aminotransferase 27 IU/L (<35); Albumin 4.6 g/dL (3.5-5.0); Albumin Globulin Ratio 1.4 (1.0-2.8); Alkaline Phosphatase 84 U/L (38-126); Aspartate Aminotransferase 29 IU/L (14-36); BUN Creatinine Ratio 26.9 (6-22); Bilirubin Total 0.7 mg/dL (0.2-1.3); Blood Urea Nitrogen 14 mg/dL (7-17); Calcium 9.3 mg/dL (8.4-10.2); Carbon Dioxide 29 mmol/L (22-32); Chloride 109 mmol/L (98-107); Cholesterol 190 mg/dL (140-199); Estimated Glomerular Filt Rate > 60 mL/min (>60); Globulin 3.2 g/dL (1.7-4.1); Glucose 111 mg/dL (80-110); HDL Cholesterol 47 mg/dL (40-60); HEMOLYSIS < 15 (0-50); LDL Cholesterol Calculated 121 mg/dL (<100); Sodium 141 mmol/L (137-145); Total Protein 7.8 g/dL (6.3-8.2); Triglycerides 110 mg/dL (35-150)
[2024-01-28 09:28] LABS: TSH w/ Reflex to FT4 1.11 uIU/mL (0.47-4.68)
== END ==
PROVIDERS: PCP Family Medicine; Referring Provider Family Medicine; Visit Provider Family Medicine
DX: Z00.00 Encounter for general adult medical examination without abnormal findings (principal); E78.2 Mixed hyperlipidemia; I10 Essential (primary) hypertension; R53.83 Other fatigue
CPT/HCPCS: 36415; 80053; 80061; 83036; 84443

== ENCOUNTER → 2024-07-30 09:21 | Outpatient (CLI) | payer OTHER, SELFPAY ==
[2024-07-30 10:05] LABS: COVID-19 CEPHEID 4-PLEX PCR Negative (Negative); Influenza A - CEPHEID Flu A NEGATIVE (NEGATIVE); Influenza B - CEPHEID Flu B NEGATIVE (NEGATIVE); Respiratory Syncytial Virus Negative (Negative)
== END ==
PROVIDERS: PCP Family Medicine; Referring Provider Physician Assistant Medical; Visit Provider Physician Assistant Medical
DX: R05.1 Acute cough (principal); J06.9 Acute upper respiratory infection, unspecified
CPT/HCPCS: 0241U

== ENCOUNTER → 2025-01-14 08:45 | Outpatient (CLI) | payer OTHER, SELFPAY ==
[2025-01-14 09:35] LABS: Add Manual Diff / Slide Review NO; Basophils Absolute Auto 100 /uL (0-100); Basophils Percent Auto 1.2 % (0-2); Eosinophils Absolute Auto 300 /uL (0-450); Eosinophils Percent Auto 4.6 % (2-4); Hematocrit 38.4 % (36-46); Hemoglobin 12.9 g/dL (12.0-16.0); Lymphocytes Absolute Auto 2500 /uL (1100-4500); Lymphocytes Percent Auto 42.1 % (25-40); Mean Corpuscular HGB Conc 33.4 % (30-36); Mean Corpuscular Volume 86.7 fL (80-100); Monocytes Absolute Auto 600 /uL (0-900); Monocytes Percent Auto 9.5 % (3-14); Neutrophils Absolute Auto 2500 /uL (1500-7000); Neutrophils Percent Auto 42.6 % (50-75); Platelet Count 319 X10^3/uL (150-400); Red Blood Cell Count 4.43 X10^6/uL (4.0-5.2); Red Cell Distribution Width 13.2 % (11.6-14.8); White Blood Cell Count 5.8 X10^3/uL (4.5-11.0)
[2025-01-14 09:50] LABS: Hemoglobin A1C% w Est Avg Glu 5.6 % (4.0-6.0)
[2025-01-14 09:56] LABS: Alanine Aminotransferase 43 IU/L (<35); Albumin 4.5 g/dL (3.5-5.0); Albumin Globulin Ratio 1.4 (1.0-2.8); Alkaline Phosphatase 82 U/L (38-126); Aspartate Aminotransferase 40 IU/L (14-36); BUN Creatinine Ratio 23.3 (6-22); Bilirubin Total 0.6 mg/dL (0.2-1.3); Blood Urea Nitrogen 14 mg/dL (7-17); Calcium 9.3 mg/dL (8.4-10.2); Carbon Dioxide 26 mmol/L (22-32); Chloride 105 mmol/L (98-107); Estimated Glomerular Filt Rate > 60 mL/min (>60); Globulin 3.2 g/dL (1.7-4.1); Glucose 120 mg/dL (80-110); HEMOLYSIS < 15 (0-50); Potassium 4.4 mmol/L (3.4-5.1); Sodium 140 mmol/L (137-145); Total Protein 7.7 g/dL (6.3-8.2)
[2025-01-14 10:25] LABS: TSH w/ Reflex to FT4 2.87 uIU/mL (0.47-4.68)
== END ==
LOC: LAB 08:46
PROVIDERS: PCP Family Medicine; Referring Provider Family Medicine; Visit Provider Family Medicine
DX: R73.9 Hyperglycemia, unspecified (principal); R74.8 Abnormal levels of other serum enzymes; E78.2 Mixed hyperlipidemia; Z80.3 Family history of malignant neoplasm of breast; I10 Essential (primary) hypertension
CPT/HCPCS: 36415; 80053; 83036; 84443; 85025